=== PATIENT | male | born 1960 | race Caucasian/White ===

== ENCOUNTER 2020-02-14 16:53 | Emergency (ER) | payer OTHER ==
[2020-02-14] MEDS ORDERED: Bacitracin 1 PK ONE ×2 (17:10)
== END 2020-02-14 17:20 | disposition home or self-care (01) ==
LOC: NAV ERS 16:53
DX: S56.521A Laceration of other extensor muscle, fascia and tendon at forearm level, right arm, initial encounter (principal); F17.210 Nicotine dependence, cigarettes, uncomplicated; Z79.899 Other long term (current) drug therapy; W22.8XXA Striking against or struck by other objects, initial encounter
CPT/HCPCS: 99283

== ENCOUNTER 2020-02-28 08:30 | Emergency (ER) | payer OTHER ==
[2020-02-28 09:32] LABS: #Basophils 0.1 thou/uL (0.0-0.2); #Eosinphils 0.2 thou/uL (0.0-0.7); #Monocytes 1.1 thou/uL (0.11-0.59); #Neutrophils 6.9 thou/uL (1.40-6.50); %Basophils 1.5 % (0.0-1.0); %Eosinophils 2.2 % (0.0-10.0); %Lymphocytes 10.9 % (21.0-51.0); %Monocytes 11.3 % (0.0-10.0); %Neutrophils 74.1 % (42.0-75.0); Mean Corpuscular HGB CONC 31.9 g/dL (32.0-36.0); Mean Corpuscular Hemoglobin 32.7 pg (27.0-31.0); Mean Platelet Volume 7.3 fL (7.4-10.4); Platelet Count 332 thou/uL (130-400); RBC Distribution Width 13.6 % (11.5-14.5); White Blood Cell (WBC) Count 9.4 thou/uL (4.8-10.8)
[2020-02-28 09:46] LABS: ALT (SGPT) 16 U/L (8-55); AST (SGOT) 22 U/L (5-34); Albumin 3.9 g/dL (3.5-5.0); Alkaline Phosphatase 93 U/L (40-110); Anion Gap 17 mmol/L (10-20); BUN (Urea Nitrogen) 20 mg/dL (8.4-25.7); Bilirubin, Total 0.5 mg/dL (0.2-1.2); Calc. Creatinine Clearance 0 mL/min (70-130); Calcium 9.1 mg/dL (7.8-10.44); Carbon Dioxide 19 mmol/L (22-29); Chloride 103 mmol/L (98-107); Estimated GFR-MDRD 64; Globulin 3.9 g/dL (2.4-3.5); Glucose 102 mg/dL (70-105); Potassium 3.8 mmol/L (3.5-5.1); Protein, Total 7.8 g/dL (6.0-8.3); Sodium 135 mmol/L (136-145)
[2020-02-28] MEDS ORDERED: Ondansetron PF 4 MG/2 ML Vial ONE (10:09)
[2020-02-28] MEDS ORDERED: Sodium Chloride 0.9% 1,000 ML ONE (10:09)
[2020-02-28 10:43] LABS: Bilirubin Small (Negative); Blood, Urine Large (Negative); Clarity Clear (Clear); Glucose, Urine (Dipstick) Negative (Negative); Leukocyte Negative (Negative); Nitrite Negative (Negative); Protein, Urine (Dipstick) Trace mg/dL (Neg-Trace); Urobilinogen 0.2 mg/dL (Less than 2)
[2020-02-28 10:50] LABS: Bacteria/HPF Rare-Few HPF (None Seen); WBC/HPF 0-3 HPF (0-3)
[2020-02-28 17:30] LABS: SARS-CoV-2 MS2 Positive; SARS-CoV-2 N Gene Negative; SARS-CoV-2 S Gene Negative; SARS-CoV-2 orf1ab Negative
== END 2020-02-28 11:20 | disposition home or self-care (01) ==
LOC: NAV ERS 08:30
DX: A08.4 Viral intestinal infection, unspecified (principal); E86.9 Volume depletion, unspecified; R11.2 Nausea with vomiting, unspecified; Z20.828 Contact with and (suspected) exposure to other viral communicable diseases; M10.9 Gout, unspecified; J45.909 Unspecified asthma, uncomplicated; F17.210 Nicotine dependence, cigarettes, uncomplicated; Z79.51 Long term (current) use of inhaled steroids; Z79.899 Other long term (current) drug therapy
CPT/HCPCS: 80053; 81003; 81015; 85025; 87635; 96361; 96374; J2405; J7050; U0003